=== PATIENT | male | born 1955 | race Caucasian/White ===

== ENCOUNTER 2016-11-19 11:02 | Emergency (ER) | payer BC ==
[2016-11-19 13:00] VITALS: BP 139/78
== END 2016-11-19 13:00 | disposition home or self-care (01) ==
LOC: ED 11:02
DX: S09.90XA Unspecified injury of head, initial encounter (principal); F07.81 Postconcussional syndrome; I10 Essential (primary) hypertension; X58.XXXA Exposure to other specified factors, initial encounter; Y93.89 Activity, other specified; Y99.8 Other external cause status; Y92.89 Other specified places as the place of occurrence of the external cause
CPT/HCPCS: J1885